=== PATIENT | male | born 1975 | race Caucasian/White ===

== ENCOUNTER 2017-08-10 13:25 | Emergency (ER) | payer OTHER ==
[2017-08-10 13:44] VITALS: TEMP 98.4; BMI 43.0
[2017-08-10 14:39] LABS: BASO % 0.6 % (0-2.0); EOS % 1.5 % (0-4.5); HEMATOCRIT 45.3 % (35.4-49); LYMPH % 24.2 % (8-40); MCH 24.4 pg (25.7-33.7); MCHC 33.2 g/dl (32.0-35.9); MEAN CELL VOLUME 73.6 fl (80-96); MONO % 7.8 % (3.8-10.2); NEUT % 65.9 % (42.8-82.8); PLATELET COUNT 265 K/MM3 (134-434); RBC 6.16 M/mm3 (4.00-5.60); WHITE BLOOD COUNT 7.5 K/mm3 (4.0-10.0)
[2017-08-10 15:07] LABS: ALBUMIN 3.9 g/dl (3.4-5.0); ANION GAP 6 (8-16); BLOOD UREA NITROGEN 17 mg/dL (7-18); CALCIUM 8.9 mg/dL (8.5-10.1); CHLORIDE 106 mmol/L (98-107); CO2 28 mmol/L (21-32); GLUCOSE,RANDOM 86 mg/dL (74-106); MAGNESIUM 1.8 mg/dL (1.8-2.4); SODIUM 140 mmol/L (136-145)
[2017-08-10 15:10] LABS: INR 1.07 (0.82-1.09); PROTHROMBIN TIME (PATIENT) 12.1 SEC (9.98-11.88)
--- NOTE | 2017-08-10 15:10 | PDOC ---
History of Present Illness - General History Source: Patient Exam Limitations: No Limitations - History of Present Illness Initial Comments: 08/10/17 15:43 The patient is a 41 year old male with a significant PMH of borderline hyperlipidemia, recently pulled LUE muscles, and herniated discs in neck, who was prompted to visit the emergency department by his primary doctor due to abnormal EKG. The patient reports receiving an EKG today after visiting his PCP for neck pain. He states his PCP noted a acute change when compared to a previous EKG from a few weeks ago, prompting him to send the patient. The patient also reports associated hand numbness and lightheadedness when his neck pain is aggravated by movement. Family history is pertinent for heart attack ( father at age late 50s). The patient denies recent travel. The patient denies chest pain, exertional or otherwise, shortness of breath, and headache. Denies fevers, chills, nausea, vomit, diarrhea, and constipation. Denies dysuria, frequency, urgency, and hematuria. Allergies: NKA Past surgical history: Inguinal hernial repair. Social history: No reported cigarette, alcohol, or drug use. PCP: Dr. Levi Roldan <Maikel Lewis - Last Filed: 08/10/17 15:43> <Ania Jimenez - Last Filed: 08/10/17 17:27> - General Chief Complaint: Revisit, Lab Variance Stated Complaint: PCP SENT (LAB VARIANCE) Time Seen by Provider: 08/10/17 14:03 Past History <Maikel Lewis - Last Filed: 08/10/17 15:43> - Past Medical History COPD: No Other medical history: herniated disc in neck - Immunization History Immunization Up to Date: Yes - Suicide/Smoking/Psychosocial Hx Smoking History: Never smoked <Ania Jimenez - Last Filed: 08/10/17 17:27> - Past Medical History Allergies/Adverse Reactions: Allergies Allergy/AdvReac Type Severity Reaction Status Date / Time No Known Allergies Allergy Verified 08/10/17 13:39 Review of Systems - Review of Systems Able to Perform ROS?: Yes Comments:: 08/10/17 15:44 GENERAL/CONSTITUTIONAL: No fever or chills. No weakness. HEAD, EYES, EARS, NOSE AND THROAT: No change in vision. No ear pain or discharge. No sore throat. CARDIOVASCULAR: No chest pain or shortness of breath. RESPIRATORY: No cough, wheezing, or hemoptysis. GASTROINTESTINAL: No nausea, vomiting, diarrhea or constipation. GENITOURINARY: No dysuria, frequency, or change in urination. MUSCULOSKELETAL: +Neck pain. No joint or muscle swelling or pain. No back pain. SKIN: No rash NEUROLOGIC: No headache, vertigo, loss of consciousness, or change in strength/ sensation. ENDOCRINE: No increased thirst. No abnormal weight change. HEMATOLOGIC/LYMPHATIC: No anemia, easy bleeding, or history of blood clots. ALLERGIC/IMMUNOLOGIC: No hives or skin allergy. <Maikel Lewis - Last Filed: 08/10/17 15:43> *Physical Exam - Vital Signs Last Vital Signs Temp Pulse Resp BP Pulse Ox 98.4 F 122 H 20 144/90 98 08/10/17 13:39 08/10/17 13:39 08/10/17 13:39 08/10/17 13:39 08/10/17 13:39 - Physical Exam Comments: 08/10/17 15:44 GENERAL: Awake, alert, and fully oriented, in no acute distress HEAD: No signs of trauma EYES: PERRLA, EOMI, sclera anicteric, conjunctiva clear ENT: Auricles normal inspection, hearing grossly normal, nares patent, oropharynx clear without exudates. Moist mucosa NECK: Normal ROM, supple, no lymphadenopathy, JVD, or masses LUNGS: Breath sounds equal, clear to auscultation bilaterally. No wheezes, and no crackles HEART: +Tachycardic. Regular rhythm, normal S1 and S2, no murmurs, rubs or gallops ABDOMEN: Soft, nontender, normoactive bowel sounds. No guarding, no rebound. No masses EXTREMITIES: Normal range of motion, no edema. No clubbing or cyanosis. No cords, erythema, or tenderness NEUROLOGICAL: Cranial nerves II through XII grossly intact. Normal speech, normal gait SKIN: Warm, Dry, normal turgor, no rashes or lesions noted. <Maikel Lewis - Last Filed: 08/10/17 15:43> - Vital Signs Last Vital Signs Temp Pulse Resp BP Pulse Ox 98.4 F 122 H 20 144/90 98 08/10/17 13:39 08/10/17 13:39 08/10/17 13:39 08/10/17 13:39 08/10/17 13:39 <Ania Jimenez - Last Filed: 08/10/17 17:27> ED Treatment Course - LABORATORY CBC & Chemistry Diagram: 08/10/17 14:29 08/10/17 14:29 - ADDITIONAL ORDERS Additional order review: Laboratory Results 08/10/17 08/10/17 14:29 14:29 PT with INR 12.10 H INR 1.07 Sodium 140 Potassium 4.0 Chloride 106 Carbon Dioxide 28 Anion Gap 6 L BUN 17 Creatinine 1.1 Creat Clearance w eGFR > 60 Random Glucose 86 Calcium 8.9 Magnesium 1.8 Total Bilirubin 0.3 AST 27 ALT 62 Alkaline Phosphatase 117 Creatine Kinase 105 Troponin I < 0.02 Total Protein 7.6 Albumin 3.9 08/10/17 14:29 RBC 6.16 H MCV 73.6 L MCHC 33.2 RDW 17.0 H MPV 8.0 Neutrophils % 65.9 Lymphocytes % 24.2 Monocytes % 7.8 Eosinophils % 1.5 Basophils % 0.6 <Maikel Lewis - Last Filed: 08/10/17 15:43> - LABORATORY CBC & Chemistry Diagram: 08/10/17 14:29 08/10/17 14:29 - ADDITIONAL ORDERS Additional order review: 08/10/17 14:29 RBC 6.16 H MCV 73.6 L MCHC 33.2 RDW 17.0 H MPV 8.0 Neutrophils % 65.9 Lymphocytes % 24.2 Monocytes % 7.8 Eosinophils % 1.5 Basophils % 0.6 - RADIOLOGY Radiology Studies Ordered: Category Date Time Status CHEST X-RAY PORTABLE* [RAD] Stat Radiology 08/10/17 14:25 Taken <Ania Jimenez - Last Filed: 08/10/17 17:27> Medical Decision Making - Medical Decision Making 08/10/17 14:58 Mr Boles is a 41 yo M with a h/o borderline HLD who presents to the ER from PMD 's office due to EKG abnormality Pt states that 1 month ago, he had musculoskeletal chest pain Was seen by his PMD, EKG was nml at that time today, he saw Dr Roldan for neck pain Ekg repeated PMD concerned due to PVC noted Pt reports no chest pain, no shortness of breath Exam nml Will do Labs, trop, re assess 08/10/17 15:39 Laboratory Tests 08/10/17 08/10/17 08/10/17 14:29 14:29 14:29 WBC 7.5 Hgb 15.0 Hct 45.3 Plt Count 265 INR 1.07 Sodium 140 Potassium 4.0 Chloride 106 Carbon Dioxide 28 Anion Gap 6 L BUN 17 Creatinine 1.1 Random Glucose 86 Calcium 8.9 Magnesium 1.8 Total Bilirubin 0.3 AST 27 ALT 62 Alkaline Phosphatase 117 Creatine Kinase 105 Troponin I < 0.02 Total Protein 7.6 Albumin 3.9 08/10/17 15:42 Pt remains tachycardiac Will give IVF No fevers Will add on TSH and D Dimer EKG:Sinus tachycardia rate of 108 bpm, axis is normal, intervals are normal, no ST elevations or depressions, T-wave inversion in lead 3, aVF, seen on prior EKG 08/10/17 16:[address] Roldan Agrees with discharge to home I have discussed my plan to do TSH and D dimer He agrees with this plan 08/10/17 16:23 Laboratory Tests 08/10/17 14:28 D-Dimer 160 08/10/17 17:26 Pt asked to follow up with PMD Re: TSH Unclear how long this will take to be resulted <Ania Jimenez - Last Filed: 08/10/17 17:27> *DC/Admit/Observation/Transfer - Attestations Scribe Attestion: 08/10/17 15:44 Documentation prepared by Maikel Lewis, acting as medical assistant ob gyn for Ania Jimenez MD. <Maikel Lewis - Last Filed: 08/10/17 15:43> - Discharge Dispostion Admit: No <Ania Jimenez - Last Filed: 08/10/17 17:27> Diagnosis at time of Disposition: Tachycardia - Discharge Dispostion Disposition: HOME Condition at time of disposition: Stable - Referrals Referrals: Levi Roldan MD [Primary Care Provider] - - Patient Instructions Printed Discharge Instructions: DI for Tachycardia, DI for Neck Pain, DI for Chronic Neck Pain Additional Instructions: Mr Boles Thank you for coming in to the ER today Plear return to the ER for any other concerns or complaints Please call your primary care physician tomorrow for follow up Please follow up with Dr Roldan re: your TSH - Post Discharge Activity
[2017-08-10 15:14] LABS: ALK PHOS 117 U/L (45-117); BILIRUBIN,TOTAL 0.3 mg/dL (0.2-1.0); CREATININE 1.1 mg/dL (0.7-1.3); SGOT/AST 27 U/L (15-37); SGPT/ALT 62 U/L (12-78); TOT PROT 7.6 g/dl (6.4-8.2)
[2017-08-10] MEDS ORDERED: SODIUM CHLORIDE 1,000 ML IV STA (15:17)
[2017-08-10 17:55] VITALS: BP 135/83; PULSE 100
--- NOTE | 2017-08-11 10:10 | EKG ---
Test Reason : Blood Pressure : / mmHG Vent. Rate : 108 BPM Atrial Rate : 108 BPM P-R Int : 146 ms QRS Dur : 088 ms QT Int : 324 ms P-R-T Axes : 049 006 -05 degrees QTc Int : 434 ms SINUS TACHYCARDIA CANNOT RULE OUT ANTERIOR INFARCT , AGE UNDETERMINED ABNORMAL ECG NO PREVIOUS ECGS AVAILABLE Confirmed by Oral Chan MD ([id number]) on 08/11/2017 10:10:40 AM Referred By: Confirmed By:Oral Chan MD
== END 2017-08-10 17:55 | disposition home or self-care (01) ==
LOC: JER 13:25
PROC: 3E0337Z Introduction of Electrolytic and Water Balance Substance into Peripheral Vein, Percutaneous Approach (ICD-10-PCS; principal; 2017-08-10)
DX: R00.0 Tachycardia, unspecified (principal); R94.31 Abnormal electrocardiogram [ECG] [EKG]
CPT/HCPCS: 36415; 71045-TC-FY; 80053; 82550; 83735; 84443; 84484; 85025; 85379; 85610; 93005; 93010; 99283-25; J7030

== ENCOUNTER 2017-08-12 17:03 | Observation (INO) | payer OTHER ==
--- NOTE | 2017-08-12 17:10 | PDOC ---
Rapid Medical Evaluation Time Seen by Provider: 08/12/17 17:07 Medical Evaluation: Allergies Allergy/AdvReac Type Severity Reaction Status Date / Time No Known Allergies Allergy Verified 08/10/17 13:39 I have performed a brief in-person evaluation of this patient. The patient presents with a chief complaint of: chest pain today with HR of 140. was here 2 days ago for similar. patient has a hard time describing the pain. PCP - Dr. Levi Roldan Pertinent physical exam findings: tachycardia. Patient appears well otherwise. No diaphoresis. EKG shows sinus tachycardia with HR of 132bpm I have ordered the following: ekg, chest xray, labs The patient will proceed to the ED for further evaluation.
[2017-08-12 17:26] LABS: BASO % 0.5 % (0-2.0); EOS % 0.2 % (0-4.5); HEMATOCRIT 46.3 % (35.4-49); HEMOGLOBIN 15.2 GM/dL (11.7-16.9); LYMPH % 10.1 % (8-40); MCH 24.1 pg (25.7-33.7); MCHC 32.9 g/dl (32.0-35.9); MEAN CELL VOLUME 73.1 fl (80-96); MEAN PLT VOLUME 7.8 fl (7.5-11.1); NEUT % 86.2 % (42.8-82.8); PLATELET COUNT 330 K/MM3 (134-434); RBC 6.33 M/mm3 (4.00-5.60); RDW 16.9 % (11.9-15.9); WHITE BLOOD COUNT 9.6 K/mm3 (4.0-10.0)
--- NOTE | 2017-08-12 17:47 | PDOC ---
History of Present Illness - General History Source: Patient Exam Limitations: No Limitations - History of Present Illness Initial Comments: 08/12/17 18:13 The patient is a 41 year old male, with a significant past medical history of borderline hyperlipidemia, recently pulled LUE muscles, and herniated discs in neck, who presents to the emergency department with chest pain and palpitations since earlier today. While at work, patient reports laying in his van to rest at approximately 13:00, when he began to feel chest tightness. At around 16:00 patient reports checking his apple watch and noting his HR was in the 140s, with associated chest pain that was nonradiating in nature. He denies any shortness of breath, diaphoresis, or lower extremity edema. Throughout the day, patient reports his HR was in the 80s. Patient reports he was seen in the ED on 08/10/17, sent by his PCP, Dr. Roldan, for evaluation of abnormal ECG and musculoskeletal chest pain about 1 month ago. At the time, patient was found to be tachycardic on ECG and vitals, and his troponin/TSH/ D-dimer were negative. Patient denies any recent fever, chills, cough, headache, or dizziness. He denies any abdominal pain, nausea, or vomiting. He denies any recent travel or sick contacts. Patient reports he has been taking a steroid for nasal congestion Allergies: NKDA Past surgical history: Inguinal hernia repair. Social history: Non smoker. No ETOH or recreational drug use. PCP: Dr. Levi Roldan <Conrad Brooks - Last Filed: 08/12/17 18:19> <Ania Jimenez - Last Filed: 08/12/17 18:37> - General Chief Complaint: Chest Pain Stated Complaint: CHEST PAIN Time Seen by Provider: 08/12/17 17:07 Past History <Conrad Brooks - Last Filed: 08/12/17 18:19> - Past Medical History COPD: No Other medical history: DENIES. - Immunization History Immunization Up to Date: Yes - Suicide/Smoking/Psychosocial Hx Smoking History: Never smoked <Ania Jimenez - Last Filed: 08/12/17 18:37> - Past Medical History Allergies/Adverse Reactions: Allergies Allergy/AdvReac Type Severity Reaction Status Date / Time No Known Allergies Allergy Verified 08/12/17 17:11 Home Medications: Ambulatory Orders Atorvastatin Ca [Lipitor] 20 mg PO DAILY 08/12/17 Review of Systems - Review of Systems Able to Perform ROS?: Yes Comments:: 08/12/17 18:14 GENERAL/CONSTITUTIONAL: No: fever, chills, weakness, loss of appetite. HEAD, EYES, EARS, NOSE AND THROAT: No: change in vision, ear pain, discharge, sore throat, throat swelling. CARDIOVASCULAR: Yes chest pain, palpitations. No: lightheadedness, syncope RESPIRATORY: No: cough, shortness of breath, wheezing, hemoptysis, stridor. GASTROINTESTINAL: No: nausea, vomiting, abdominal cramping, diarrhea, rectal bleeding, constipation. GENITOURINARY: No: dysuria, hematuria, frequency, urgency, flank pain. MUSCULOSKELETAL: No: back pain, neck pain, joint pain, muscle swelling or pain SKIN AND BREASTS: No: lesions, pallor, rash or easy bruising. NEUROLOGIC: No: headache, vertigo, paresthesias, weakness ENDOCRINE: No: unexplained weight gain or loss HEMATOLOGIC/LYMPHATIC: No: anemia, easy bleeding, swelling nodes <Brooks,Giomilsy - Last Filed: 08/12/17 18:19> *Physical Exam - Vital Signs Last Vital Signs Temp Pulse Resp BP Pulse Ox 98.9 F 108 H 20 139/78 98 08/12/17 17:11 08/12/17 17:58 08/12/17 17:11 08/12/17 17:11 08/12/17 17:58 - Physical Exam Comments: 08/12/17 18:14 GENERAL: The patient is in no acute distress. HEAD: Normal with no signs of trauma. EYES: PERRLA, EOMI, sclera anicteric, conjunctiva clear. ENT: Ears normal, nares patent, oropharynx clear without exudates. Moist mucous membranes. NECK: Normal range of motion, supple without lymphadenopathy, JVD, or masses. LUNGS: Breath sounds equal, clear to auscultation bilaterally. No wheezes, and no crackles. HEART: +Tachycardic. Regular rhythm, normal S1 and S2 without murmur, rub or gallop. ABDOMEN: Soft, nontender, normoactive bowel sounds. No guarding, no rebound. EXTREMITIES: Normal range of motion, no edema. No clubbing or cyanosis. No erythema, or tenderness. NEUROLOGICAL: Cranial nerves II through XII grossly intact. Normal speech. No focal neurological deficits. MUSCULOSKELETAL: Back non-tender to palpation, no CVA tenderness SKIN: Warm, Dry, normal turgor, no rashes or lesions noted. <Conrad Brooks - Last Filed: 08/12/17 18:19> - Vital Signs Last Vital Signs Temp Pulse Resp BP Pulse Ox 98.9 F 136 H 20 139/78 100 08/12/17 17:11 08/12/17 17:11 08/12/17 17:11 08/12/17 17:11 08/12/17 17:11 <Ania Jimenez - Last Filed: 08/12/17 18:37> ED Treatment Course - LABORATORY CBC & Chemistry Diagram: 08/12/17 17:20 08/12/17 17:20 - ADDITIONAL ORDERS Additional order review: Laboratory Results 08/12/17 17:20 Sodium 136 Potassium 4.0 Chloride 103 Carbon Dioxide 23 Anion Gap 10 BUN 17 Creatinine 1.0 Creat Clearance w eGFR > 60 Random Glucose 124 H D Calcium 9.0 Total Bilirubin 0.5 D AST 25 ALT 60 Alkaline Phosphatase 122 H Creatine Kinase 85 Troponin I < 0.02 Total Protein 8.0 Albumin 4.5 08/12/17 17:20 RBC 6.33 H MCV 73.1 L MCHC 32.9 RDW 16.9 H MPV 7.8 Neutrophils % 86.2 H D Lymphocytes % 10.1 D Monocytes % 3.0 L Eosinophils % 0.2 D Basophils % 0.5 <Conrad Brooks - Last Filed: 08/12/17 18:19> - LABORATORY CBC & Chemistry Diagram: 08/12/17 17:20 08/12/17 17:20 - ADDITIONAL ORDERS Additional order review: 08/12/17 17:20 RBC 6.33 H MCV 73.1 L MCHC 32.9 RDW 16.9 H MPV 7.8 Neutrophils % 86.2 H D Lymphocytes % 10.1 D Monocytes % 3.0 L Eosinophils % 0.2 D Basophils % 0.5 <Ania Jimenez - Last Filed: 08/12/17 18:37> Medical Decision Making - Medical Decision Making 08/12/17 18:[address] Roldan at 18:19. Agreed to admit. <Conrad Brooks - Last Filed: 08/12/17 18:19> - Medical Decision Making Mr Boles is a 41 yo M with a h/o borderline HLD who presents to the ER from work due to palpitations and chest tightness Pt was seen in the ER 2 days ago TSH, Ddimer negative PT states that he was in his usual state of health Layed down in his truck at 1 pm, noted chest tightness, heart rate at that time was nml At 4pm prior to leaving work, he noted his heart rate was elevated (140s) and he had chest tightness He presents with elevated HR Will do Labs, trop, re assess 08/12/17 18:30 Laboratory Tests 08/10/17 08/12/17 14:29 17:20 Sodium 140 136 Potassium 4.0 4.0 Chloride 106 103 Carbon Dioxide 28 23 Anion Gap 6 L BUN 17 17 Creatinine 1.1 1.0 Random Glucose 124 H D Creatine Kinase 105 85 Troponin I < 0.02 < 0.02 EKG: Sinus tachycardia, rate of 132 bpm, axis is normal, intervals are normal, no ST elevations or depressions 08/12/17 18:[address] Roldan He will admit to his service Clinical Impression: Sinus tachycardia, initial presentation Chest tightness, initial presentation <Ania Jimenez - Last Filed: 08/12/17 18:37> *DC/Admit/Observation/Transfer - Attestations Scribe Attestion: 08/12/17 18:14 Documentation prepared by Conrad Brooks, acting as regional medical director for Ania Jimenez MD. <Conrad Brooks - Last Filed: 08/12/17 18:19> - Discharge Dispostion Admit: Yes <Ania Jimenez - Last Filed: 08/12/17 18:37> Diagnosis at time of Disposition: Tachycardia - Discharge Dispostion Condition at time of disposition: Stable - Referrals Referrals: Levi Roldan MD [Primary Care Provider] - - Patient Instructions - Post Discharge Activity
[2017-08-12 17:48] LABS: ALBUMIN 4.5 g/dl (3.4-5.0); ANION GAP 10 (8-16); BILIRUBIN,TOTAL 0.5 mg/dL (0.2-1.0); BLOOD UREA NITROGEN 17 mg/dL (7-18); CHLORIDE 103 mmol/L (98-107); CO2 23 mmol/L (21-32); GLUCOSE,RANDOM 124 mg/dL (74-106); SGOT/AST 25 U/L (15-37); SGPT/ALT 60 U/L (12-78); SODIUM 136 mmol/L (136-145)
[2017-08-12 17:50] LABS: ALK PHOS 122 U/L (45-117)
[2017-08-12] MEDS ORDERED: SODIUM CHLORIDE 1,000 ML IV STA (17:59)
[2017-08-12] MEDS ORDERED: ASPIRIN 81 MG CHEWABLE TABLETS PO ONE (18:01)
[2017-08-12] MEDS ORDERED: ASPIRIN 81 MG CHEWABLE TABLETS ONE (18:29)
[2017-08-12] MEDS ORDERED: metoPROLOL SUCCINATE 25 MG TAB.SR.24H (FP) PO ONE (21:04)
[2017-08-12] MEDS ORDERED: ALPRAZolam 0.25 MG TABLET PO ONE (21:07)
[2017-08-12] MEDS: SODIUM CHLORIDE 1,000 ML IV SCH ×2 (21:36→21:43)
[2017-08-12] MEDS ORDERED: ALPRAZolam 0.25 MG TABLET ONE (21:41)
[2017-08-13 03:10] VITALS: BMI 42.9
[2017-08-13 07:20] LABS: BASO % 0.2 % (0-2.0); EOS % 0.5 % (0-4.5); HEMATOCRIT 41.2 % (35.4-49); HEMOGLOBIN 13.4 GM/dL (11.7-16.9); LYMPH % 19.3 % (8-40); MCHC 32.6 g/dl (32.0-35.9); MEAN CELL VOLUME 73.6 fl (80-96); MEAN PLT VOLUME 7.9 fl (7.5-11.1); MONO % 7.5 % (3.8-10.2); NEUT % 72.5 % (42.8-82.8); PLATELET COUNT 272 K/MM3 (134-434); RDW 16.8 % (11.9-15.9); WHITE BLOOD COUNT 10.8 K/mm3 (4.0-10.0)
--- NOTE | 2017-08-13 09:32 | HP ---
Admitting History and Physical - Admission Chief Complaint: pt with cp last pm he was sent home last wk also w co ce neg. last pm er ce neg also w ekg nl admited to observ. pt told me today that he was using detox gi meds ? dehydrated w hr up 150 an hr bp low today may d/c betablocker feels better today. denied other complaints History Source: Patient, Family Member Limitations to Obtaining History: No Limitations - Past Medical History Cardiovascular: Yes: Other (s tach resolving) - Past Surgical History Past Surgical History: Yes: None - Smoking History Smoking history: Never smoked Have you smoked in the past 12 months: No - Alcohol/Substance Use Hx Alcohol Use: No History of Substance Use: reports: None - Social History Usual Living Arrangement: Yes: With Spouse ADL: Independent History of Recent Travel: No Home Medications - Allergies Allergies/Adverse Reactions: Allergies Allergy/AdvReac Type Severity Reaction Status Date / Time No Known Allergies Allergy Verified 08/12/17 17:11 - Home Medications Home Medications: Ambulatory Orders Atorvastatin Ca [Lipitor] 20 mg PO DAILY 08/12/17 Family Disease History - Family Disease History Family History: Unremarkable Review of Systems - Review of Systems Constitutional: reports: Other (cp) Eyes: reports: No Symptoms HENT: reports: No Symptoms Neck: reports: No Symptoms Cardiovascular: reports: No Symptoms Respiratory: reports: No Symptoms Gastrointestinal: reports: No Symptoms Genitourinary: reports: No Symptoms Breasts: reports: No Symptoms Reported Musculoskeletal: reports: No Symptoms Integumentary: reports: No Symptoms Neurological: reports: No Symptoms Endocrine: reports: No Symptoms Hematology/Lymphatic: reports: No Symptoms Psychiatric: reports: No Symptoms, Other (? anxiety as per also) Physical Examination Vital Signs: Vital Signs Temperature 98.2 F 08/13/17 02:00 Pulse Rate 90 08/13/17 06:00 Respiratory Rate 20 08/13/17 09:00 Blood Pressure 110/50 08/13/17 06:00 O2 Sat by Pulse Oximetry (%) 97 08/13/17 09:00 Constitutional: Yes: Obese Eyes: Yes: WNL HENT: Yes: WNL Neck: Yes: WNL Cardiovascular: Yes: Tachycardia Respiratory: Yes: WNL Gastrointestinal: Yes: WNL ...Rectal Exam: Yes: Deferred Renal/: Yes: WNL Breast(s): Yes: WNL Musculoskeletal: Yes: Other (cp) Extremities: Yes: WNL Edema: No Peripheral Pulses: Left Radial: 1+, Right Radial: 1+, Left Doralis Pedis: 1+, Right Dorsalis Pedis: 1+, Left Femoral: 1+, Right Femoral: 1+ Integumentary: Yes: WNL Neurological: Yes: WNL ...Motor Strength: WNL Psychiatric: Yes: WNL Labs: CBC, BMP 08/13/17 05:35 08/12/17 17:20 Problem List - Problems (1) Chest pain Code(s): R07.9 - CHEST PAIN, UNSPECIFIED Assessment/Plan stress test to day d/c betablocker??? card to day w dr mejia echo today cont iv
[2017-08-13] MEDS ORDERED: predniSONE 20 MG TABLET (UD) PO SCH (10:00)
[2017-08-13] MEDS ORDERED: ASPIRIN COATED 81 MG TABLET.EC PO SCH (10:00)
[2017-08-13] MEDS ORDERED: metoPROLOL SUCCINATE 25 MG TAB.SR.24H (FP) PO SCH (10:00)
[2017-08-13] MEDS ORDERED: REGADENOSON 0.4 MG/5 ML PRE-FILLED SYRINGE IVPUSH ONE (10:30)
[2017-08-13] MEDS ORDERED: PT OWN MED DRAWER 7, Y5N ONE (10:57)
--- NOTE | 2017-08-13 11:05 | EKG ---
Test Reason : Blood Pressure : / mmHG Vent. Rate : 103 BPM Atrial Rate : 103 BPM P-R Int : 142 ms QRS Dur : 088 ms QT Int : 332 ms P-R-T Axes : 048 009 -01 degrees QTc Int : 434 ms SINUS TACHYCARDIA CANNOT RULE OUT ANTERIOR INFARCT (CITED ON OR BEFORE 10-AUG-2017) ABNORMAL ECG WHEN COMPARED WITH ECG OF 12-AUG-2017 17:09, QUESTIONABLE CHANGE IN INITIAL FORCES OF ANTERIOR LEADS Confirmed by CANDI RO, CORNELIUS ([id number]) on 08/13/2017 11:05:31 AM Referred By: Confirmed By:CORNELIUS CHRISTOPHER MD
--- NOTE | 2017-08-13 11:06 | EKG ---
Test Reason : Blood Pressure : / mmHG Vent. Rate : 132 BPM Atrial Rate : 132 BPM P-R Int : 140 ms QRS Dur : 090 ms QT Int : 296 ms P-R-T Axes : 061 020 010 degrees QTc Int : 438 ms SINUS TACHYCARDIA CANNOT RULE OUT ANTERIOR INFARCT (CITED ON OR BEFORE 10-AUG-2017) ABNORMAL ECG WHEN COMPARED WITH ECG OF 10-AUG-2017 15:33, QUESTIONABLE CHANGE IN INITIAL FORCES OF ANTERIOR LEADS Confirmed by CANDI RO, CORNELIUS ([id number]) on 08/13/2017 11:06:10 AM Referred By: Confirmed By:CORNELIUS CHRISTOPHER MD
--- NOTE | 2017-08-13 13:58 | CON.CARD ---
Consult Consult Specialty:: Cardiology Referred by:: Dr Levi Roldan Reason for Consultation:: cp - History of Present Illness Chief Complaint: chest pain palpitations History of Present Illness: 41 year old male, with a significant past medical history of borderline hyperlipidemia, cervical radiculopathy, who presented to the emergency department with chest pain and palpitations yesterday. Recently seen in ER with chest pain sent home for outpatient evaluation. Recently started on a "detox diet." No dizziness, syncope, orthopnea, pnd or edema. Exercise tolerance is good. - History Source History Provided By: Patient, Medical Record Limitations to Obtaining History: No Limitations - Past Medical History Cardio/Vascular: Yes: Other (s tach resolving) - Past Surgical History Past Surgical History: Yes: None - Alcohol/Substance Use Hx Alcohol Use: No History of Substance Use: reports: None - Smoking History Smoking history: Never smoked Have you smoked in the past 12 months: No - Social History ADL: Independent History of Recent Travel: No Home Medications - Allergies Allergies/Adverse Reactions: Allergies Allergy/AdvReac Type Severity Reaction Status Date / Time No Known Allergies Allergy Verified 08/12/17 17:11 - Home Medications Home Medications: Ambulatory Orders Atorvastatin Ca [Lipitor] 20 mg PO DAILY 08/12/17 Review of Systems - Review of Systems Constitutional: reports: No Symptoms Eyes: reports: No Symptoms HENT: reports: No Symptoms Neck: reports: No Symptoms Respiratory: reports: No Symptoms Gastrointestinal: reports: No Symptoms Genitourinary: reports: No Symptoms Vital Signs: Vital Signs Temperature 98.2 F 08/13/17 02:00 Pulse Rate 90 08/13/17 06:00 Respiratory Rate 20 08/13/17 09:00 Blood Pressure 110/50 08/13/17 06:00 O2 Sat by Pulse Oximetry (%) 97 08/13/17 09:00 Constitutional: Yes: No Distress, Calm Eyes: Yes: Conjunctiva Clear, EOM Intact HENT: Yes: Atraumatic, Normocephalic Neck: Yes: Supple, Trachea Midline Respiratory: Yes: CTA Bilaterally Gastrointestinal: Yes: Normal Bowel Sounds, Soft, Abdomen, Obese Cardiovascular: Yes: Regular Rate and Rhythm JVD: No Carotid Bruit: No PMI: Non-Displaced Heart Sounds: Yes: S1, S2 Edema: No Peripheral Pulses WNL: Yes - Other Data Labs, Other Data: CBC, BMP 08/13/17 05:35 08/12/17 17:20 Troponin, BNP 08/12/17 08/12/17 17:20 23:01 Troponin I < 0.02 < 0.02 Troponin, BNP 08/12/17 08/12/17 17:20 23:01 Troponin I < 0.02 < 0.02 Imaging - Results X-ray: Report Reviewed (macho) EKG: Report Reviewed (sinus tachycardia. nssttw changes.) Problem List - Problems (1) Chest pain Assessment/Plan: the pain is atypical for angina. He has some risk factors and multiple ER visits. Nuclear stress test in process. Code(s): R07.9 - CHEST PAIN, UNSPECIFIED Qualifiers: Chest pain type: precordial pain Qualified Code(s): R07.2 - Precordial pain (2) Tachycardia Assessment/Plan: ECG and tele c/w sinus tachycardia. No need for treatment. Correct underlying noncardiac cause. Code(s): R00.0 - TACHYCARDIA, UNSPECIFIED
[2017-08-13 19:04] VITALS: TEMP 98
[2017-08-13 19:05] VITALS: BP 122/66; PULSE 85
[2017-08-13] MEDS ORDERED: NAPROXEN 500 MG TABLET (FP) PO SCH (22:00)
== END 2017-08-13 18:04 | disposition home or self-care (01) ==
LOC: JER 17:03 → JERBED 18:37 → J4W 22:01
PROVIDERS: ADMIT Family Medicine; ATTEND Family Medicine
PROC: 3E0337Z Introduction of Electrolytic and Water Balance Substance into Peripheral Vein, Percutaneous Approach (ICD-10-PCS; principal; 2017-08-12)
DX: R07.9 Chest pain, unspecified (principal); R00.0 Tachycardia, unspecified
CPT/HCPCS: 36415; 71045-TC-FY; 78452-TC; 80053; 82550; 84484; 85025; 93005; 93010; 93017; 99285-25; A9502; G0378; J7030